=== PATIENT | male | born 1990 | race American Indian/Alaskan Native ===

== ENCOUNTER 2017-04-16 18:49 | Emergency (ER) | payer SELFPAY ==
[2017-04-16 19:03] VITALS: BMI 35.9
[2017-04-16 19:09] VITALS: TEMP 100.9
--- NOTE | 2017-04-16 19:44 | ED PDOC ---
Arrival/HPI - General Historian: Patient <Sacha Mims - Last Filed: 04/16/17 22:19> - General Historian: Patient <Pierre Alamo - Last Filed: 04/16/17 22:27> - General Chief Complaint: Medical Clearance Time Seen by Provider: 04/16/17 19:29 - History of Present Illness Narrative History of Present Illness (Text): 04/16/17 19:40 This is a 26yo M w/ a PMHx of bacterial endocarditis s/p valve repair w/ open heart surgery and antibiotic therapy with no other medical problems who is coming to the emergency room after a 1d history of just feeling off. States he felt like his heart was pounding out of his chest, and that he started to feel faint and like the room started to go a little bit dark. He also admit to concurrent nausea, no vomiting. This has never happened to him before. States he got endocarditis from a PNA that he had in the past; denies all IVDA or any drug use whatsoever. Denies EtOH or smoking. 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 PMD: Dr. Hoang Beck Cardio: Dr. 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, denies EtOH or smoking/ illicit drugs 04/16/17 20:53 (Sacha Mims) Past Medical History - Infectious Disease Hx of Infectious Diseases: None - Cardiac Other/Comment: heart murmur as a child - Psychiatric Hx Substance Use: No - Surgical History Other/Comment: pericarditis had surgery 2013 - Anesthesia Hx Anesthesia Reactions: No Hx Malignant Hyperthermia: No <Sacha Mims - Last Filed: 04/16/17 22:19> - Provider Review Nursing Documentation Reviewed: Yes <Pierre Alamo - Last Filed: 04/16/17 22:27> Family/Social History Smoking Status: Never Smoked Hx Alcohol Use: No Hx Substance Use: No <Sacha Mims - Last Filed: 04/16/17 22:19> - Physician Review Nursing Documentation Reviewed: Yes Family/Social History: Unknown Family HX <Pierre Alamo - Last Filed: 04/16/17 22:27> Allergies/Home Meds <PrasannaSacha - Last Filed: 04/16/17 22:19> <Yan Alamoevangelina - Last Filed: 04/16/17 22:27> Allergies/Adverse Reactions: Allergies No Known Allergies Allergy (Verified 04/16/17 19:36) Review of Systems - Review of Systems Constitutional: Fatigue Eyes: Vision Changes Respiratory: SOB Cardiovascular: Palpitations. absent: Chest Pain, Edema, Syncope Gastrointestinal: absent: Abdominal Pain, Stool Changes, Constipation Genitourinary Male: absent: Dysuria, Frequency, Hematuria Musculoskeletal: absent: Arthralgias, Back Pain Skin: absent: Rash, Pruritis Neurological: Headache. absent: Dizziness Endocrine: absent: Diaphoresis Hemo/Lymphatic: absent: Adenopathy Psychiatric: absent: Anxiety, Depression <Sacha Mims - Last Filed: 04/16/17 22:19> Physical Exam Temperature: Febrile Blood Pressure: Normal Pulse: Tachycardic Respiratory Rate: Normal Appearance: Positive for: Well-Appearing Pain Distress: None Mental Status: Positive for: Alert and Oriented X 3 - Systems Exam Head: Present: Atraumatic, Normocephalic Pupils: Present: PERRL Extroacular Muscles: Present: EOMI Conjunctiva: Present: Normal Mouth: Present: Moist Mucous Membranes Neck: Present: Normal Range of Motion Respiratory/Chest: Present: Clear to Auscultation, Good Air Exchange. No: Respiratory Distress, Accessory Muscle Use (scar from open heart surgery well healed) Cardiovascular: Present: Regular Rate and Rhythm, Murmurs, Normal S1, S2, Tachycardic Abdomen: No: Tenderness, Distention Upper Extremity: Present: Normal Inspection. No: Cyanosis, Edema Lower Extremity: Present: Normal Inspection. No: Edema, CALF TENDERNESS Neurological: Present: GCS=15, CN II-XII Intact Skin: Present: Warm <Sacha Mims - Last Filed: 04/16/17 22:19> Vital Signs Reviewed: Yes <Pierre Alamo - Last Filed: 04/16/17 22:27> Vital Signs Temp Pulse Resp BP Pulse Ox 04/16/17 18:50 100.9 F H 117 H 18 130/77 97 Medical Decision Making <Sacha Mims - Last Filed: 04/16/17 22:19> - Lab Interpretations I have reviewed the lab results: Yes - EKG Interpretation Interpreted by ED Physician: Yes Type: 12 lead EKG <Pierre Alamo - Last Filed: 04/16/17 22:27> ED Course and Treatment: 04/16/17 19:45 Will order CBC CMP Cardiac Iso, Chest X-Ray, Blood cultures SIRS 2/4 for right now; tachycardia, RR above 20 EKG Showed Sinus Tachy at 108 w/ RBBB and T wave abnormality Reassess and disposition 04/16/17 19:54 Rectal Temp 100.9; SIRS 3/4 04/16/17 22:19 The patient is wishing to sign out AMA he was advised of the risks of doing so up to and including , permanent disability etc he understands the risks and benefits of leaving he states he will come back to the hospital after because he needs to bring his family home right now discussed with Dr. alamo (Shannan'juniorSacha) 04/16/17 Patient Seen With Resident: In agreement with resident note which contains more details about the patient. Patient was seen and evaluated with resident. Came up with plan and treatment together. 04/16/17 21:58 Patient with fever but with history of endocarditis - will need tba to follow blood cultures and echo. Patient however refusing to stay in the hospital, signing out ama, understanding the risk of leaving ama, including recurrence of endocarditis. (Pierre Alamo) - Lab Interpretations Lab Results: 04/16/17 19:50 04/16/17 19:50 Lab Results 04/16/17 21:20: Urine Color Yellow, Urine Appearance Clear, Urine pH 8.5, Ur Specific [place] 1.015, Urine Protein Trace H, Urine Glucose (UA) Negative, Urine Ketones Negative, Urine Blood Negative, Urine Nitrate Negative, Urine Bilirubin Negative, Urine Urobilinogen 1.0 H, Ur Leukocyte Esterase Negative, Urine RBC 0 - 2, Urine WBC 0 - 2 04/16/17 21:20: Urine Opiates Screen Negative, Urine Methadone Screen Negative, Ur Barbiturates Screen Negative, Ur Phencyclidine Scrn Negative, Ur Amphetamines Screen Negative, U Benzodiazepines Scrn Negative, U Oth Cocaine Metabols Negative, U Cannabinoids Screen Negative 04/16/17 21:20: Influenza Typ A,B (EIA) Negative for flu a/b 04/16/17 20:45: D-Dimer, Quantitative 0.32 04/16/17 19:50: Sodium 137, Potassium 3.9, Chloride 100, Carbon Dioxide 27, Anion Gap 14, BUN 12, Creatinine 0.9, Est GFR ( Amer) > 60, Est GFR (Non- Af Amer) > 60, Random Glucose 108, Calcium 9.4, Phosphorus 2.8, Magnesium 1.8, Total Bilirubin 0.8, AST 45, ALT 42, Alkaline Phosphatase 55, Lactate Dehydrogenase 616, Total Creatine Kinase 133, Troponin I < 0.01, Total Protein 8.1, Albumin 4.5, Globulin 3.5, Albumin/Globulin Ratio 1.3 04/16/17 19:50: WBC 9.7, RBC 4.84, Hgb 13.7 L, Hct 40.8 L, MCV 84.3, MCH 28.3, MCHC 33.6, RDW 12.7, Plt Count 326, MPV 9.2, Gran % 78.8 H, Lymph % (Auto) 14.2 L, [place] % (Auto) 6.1 H, Eos % (Auto) 0.6 L, Baso % (Auto) 0.3, Gran # 7.64 H, Lymph # 1.4, [place] # 0.6, Eos # 0.1, Baso # 0.03 - RAD Interpretation Radiology Orders: 04/16/17 19:40 CHEST PORTABLE [RAD] Stat <Sacha Mims - Last Filed: 04/16/17 22:19> - PA / RADIO SURVEY WORKER / Resident Statement / has reviewed & agrees with the documentation as recorded. MD/ has examined the patient and agrees with the treatment plan. - Scribe Statement The provider has reviewed the documentation as recorded by the Scribe <Pierre Alamo - Last Filed: 04/16/17 22:27> - Scribe Statement 04/16/2017 Astrid Mauricio Provider Scribe Attestation: All medical record entries made by the Scribe were at my direction and personally dictated by me. I have reviewed the chart and agree that the record accurately reflects my personal performance of the history, physical exam, medical decision making, and the department course for this patient. I have also personally directed, reviewed, and agree with the discharge instructions and disposition. (Pierre Alamo) Disposition/Present on Arrival - Present on Arrival Any Indicators Present on Arrival: No History of DVT/PE: No History of Uncontrolled Diabetes: No Urinary Catheter: No History of Decub. Ulcer: No History Surgical Site Infection Following: None - Disposition Have Diagnosis and Disposition been Completed?: No <Sacha Mims - Last Filed: 04/16/17 22:19> - Present on Arrival Any Indicators Present on Arrival: No - Disposition Have Diagnosis and Disposition been Completed?: Yes Disposition Time: 22:00 Patient Plan: Other (AMA) <Pierre Alamo - Last Filed: 04/16/17 22:27> - Disposition Diagnosis: Fever Disposition: AGAINST MEDICAL ADVICE Patient Problems: Current Active Problems Problem Status Onset Fever Acute Condition: UNKNOWN Additional Instructions: You are leaving the hospital against medical advice. You may return to the emergency department at any time. If you choose not to do so, then recommend following up with your primary care doctor as soon as possible. Referrals: Kiran Bolton Jr., MD [Primary Care Provider] - Follow up with primary Forms: WORK NOTE
[2017-04-16 20:11] LABS: ALB/GLOB RATIO 1.3 (1.1-1.8); ALBUMIN 4.5 g/dL (3.0-4.8); ALT/SGPT 42 U/L (7-56); AST/SGOT 45 U/L (15-59); BASO # 0.03 K/mm3 (0.0-2.0); BASO % 0.3 % (0.0-3.0); BLOOD UREA NITROGEN 12 mg/dL (7-21); CALCIUM 9.4 mg/dL (8.4-10.5); EOS # 0.1 (0.0-0.7); EOS % 0.6 % (1.5-5.0); GFR AFRICAN-AMERICAN > 60; GFR NON-AFRICAN AMERICAN > 60; GRAN # 7.64 (1.4-6.5); GRAN % 78.8 % (50.0-68.0); HEMOGLOBIN 13.7 gm/dL (14.0-18.0); LYMPH # 1.4 (1.2-3.4); LYMPH % 14.2 % (22.0-35.0); MAGNESIUM 1.8 mg/dL (1.7-2.2); MEAN CELL VOLUME 84.3 fL (80.0-105.0); MEAN CORPUSCULAR HEMOGLOBIN 28.3 pg (25.0-35.0); MEAN CORPUSCULAR HGB CONC 33.6 g/dl (31.0-37.0); MEAN PLATELET VOLUME 9.2 fl (7.0-11.0); MONO # 0.6 (0.1-0.6); MONO % 6.1 % (1.0-6.0); PLATELET COUNT 326 10^3/uL (120.0-450.0); RBC 4.84 10^6/uL (3.5-6.1); RED CELL DISTRIBUTION WIDTH 12.7 % (11.5-14.5); WHITE BLOOD COUNT 9.7 10^3/ul (4.5-11.0)
[2017-04-16 20:23] LABS: TROPONIN I < 0.01 ng/mL
[2017-04-16 21:44] LABS: PH,URINE 8.5 (4.7-8.0); URINE BILIRUBIN NEGATIVE (NEGATIVE); URINE BLOOD NEGATIVE (NEGATIVE); URINE GLUCOSE (UA) NEGATIVE (NEGATIVE); URINE LEUKOCYTE ESTERASE NEGATIVE Leu/uL (NEGATIVE); URINE NITRATE NEGATIVE (NEGATIVE); URINE PROTEIN TRACE mg/dL (<30 mg/dL)
[2017-04-16 21:52] LABS: URINE APPEARANCE CLEAR (CLEAR); URINE COLOR YELLOW (YELLOW)
[2017-04-16 22:00] LABS: URINE RBC 0 - 2 /hpf (0-2); URINE WBC 0 - 2 /hpf (0-6)
[2017-04-16 22:18] LABS: BARBITURATES, UR NEGATIVE (NEGATIVE); BENZODIAZEPINES, UR NEGATIVE (NEGATIVE); OPIATES, UR NEGATIVE (NEGATIVE); PHENCYCLIDINE, UR NEGATIVE (NEGATIVE)
[2017-04-16 22:34] VITALS: BP 129/75; PULSE 100; RESP 16; O2SAT 98
--- NOTE | 2017-04-17 00:59 | CP.PCM.HP ---
History of Present Illness - History of Present Illness History of Present Illness: CC: Lethargy/fatigue, shortness of breath and subjective fever x 1 day HPI: 26 y/o male with a PMHx bacterial endocarditis s/p Mitral valve repair in 2012 presents to the ED with the complaint of shortness of breath and extreme fatigue with ambulation x 1 day. 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 While in the ED the patient also complained of feelling hot and was found to have a temp of 100.4. He reports some diaphoresis and chills as well over the past day. He denies any complaints of chest pain, palpitations, abdominal pain, nausea, vomiting, headache, diarrhea or syncope. He states following up with his Production Control Supervisor at [facility] (Dr. Tucker) and reports having tests done regularly. He last remembers getting a ARCENIO done earlier this year which as per him, was reported to be normal. PMHx: endocarditis secondary to pneumonia, s/p mitral valve repair 2013 Allergies: NKDA Fam Hx: Mother -born with a heart murmur Soc Hx: denies tobacco/etoh/illicit drug use Meds: patient does not take any medication Present on Admission - Present on Admission Any Indicators Present on Admission: No Review of Systems - Review of Systems Review of Systems: As per HPI otherwise negative for a 10 point ROS Past Patient History - Infectious Disease Hx of Infectious Diseases: None - Past Social History Smoking Status: Never Smoked - CARDIAC Other/Comment: heart murmur as a child - PSYCHIATRIC Hx Substance Use: No - SURGICAL HISTORY Other/Comment: pericarditis had surgery 2013 - ANESTHESIA Hx Anesthesia Reactions: No Hx Malignant Hyperthermia: No Meds Allergies/Adverse Reactions: Allergies Allergy/AdvReac Type Severity Reaction Status Date / Time No Known Allergies Allergy Verified 04/16/17 19:36 Physical Exam - Constitutional Appears: Well, Non-toxic, No Acute Distress - Head Exam Head Exam: ATRAUMATIC, NORMOCEPHALIC - Eye Exam Eye Exam: EOMI, Normal appearance - ENT Exam ENT Exam: Mucous Membranes Dry - Neck Exam Neck exam: Positive for: Normal Inspection - Respiratory Exam Respiratory Exam: Clear to Auscultation Bilateral, NORMAL BREATHING PATTERN. absent: Rales, Rhonchi, Wheezes - Cardiovascular Exam Cardiovascular Exam: REGULAR RHYTHM, +S1, +S2. absent: Systolic Murmur - GI/Abdominal Exam GI & Abdominal Exam: Soft. absent: Guarding, Rebound, Tenderness - Rectal Exam Rectal Exam: Deferred - Extremities Exam Extremities exam: Positive for: normal inspection. Negative for: calf tenderness - Neurological Exam Neurological exam: Alert, Oriented x3 - Psychiatric Exam Psychiatric exam: Normal Affect, Normal Mood - Skin Skin Exam: Dry, Intact, Normal Color, Warm Results - Vital Signs Recent Vital Signs: Last Vital Signs Temp 100.9 F H 04/16/17 18:50 Pulse 100 H 04/16/17 22:33 Resp 16 04/16/17 22:33 BP 129/75 04/16/17 22:33 Pulse Ox 98 04/16/17 22:33 - Labs Result Diagrams: 04/16/17 19:50 04/16/17 19:50 Labs: Laboratory Results - last 24 hr 04/16/17 04/16/17 04/16/17 19:50 19:50 20:45 WBC 9.7 RBC 4.84 Hgb 13.7 L Hct 40.8 L MCV 84.3 MCH 28.3 MCHC 33.6 RDW 12.7 Plt Count 326 MPV 9.2 Gran % 78.8 H Lymph % (Auto) 14.2 L [place] % (Auto) 6.1 H Eos % (Auto) 0.6 L Baso % (Auto) 0.3 Gran # 7.64 H Lymph # 1.4 [place] # 0.6 Eos # 0.1 Baso # 0.03 D-Dimer, Quantitative 0.32 Sodium 137 Potassium 3.9 Chloride 100 Carbon Dioxide 27 Anion Gap 14 BUN 12 Creatinine 0.9 Est GFR ( Amer) > 60 Est GFR (Non-Af Amer) > 60 Random Glucose 108 Calcium 9.4 Phosphorus 2.8 Magnesium 1.8 Total Bilirubin 0.8 AST 45 ALT 42 Alkaline Phosphatase 55 Lactate Dehydrogenase 616 Total Creatine Kinase 133 Troponin I < 0.01 Total Protein 8.1 Albumin 4.5 Globulin 3.5 Albumin/Globulin Ratio 1.3 Urine Color Urine Appearance Urine pH Ur Specific [place] Urine Protein Urine Glucose (UA) Urine Ketones Urine Blood Urine Nitrate Urine Bilirubin Urine Urobilinogen Ur Leukocyte Esterase Urine RBC Urine WBC Urine Opiates Screen Urine Methadone Screen Ur Barbiturates Screen Ur Phencyclidine Scrn Ur Amphetamines Screen U Benzodiazepines Scrn U Oth Cocaine Metabols U Cannabinoids Screen Influenza Typ A,B (EIA) 04/16/17 04/16/17 04/16/17 21:20 21:20 21:20 WBC RBC Hgb Hct MCV MCH MCHC RDW Plt Count MPV Gran % Lymph % (Auto) [place] % (Auto) Eos % (Auto) Baso % (Auto) Gran # Lymph # [place] # Eos # Baso # D-Dimer, Quantitative Sodium Potassium Chloride Carbon Dioxide Anion Gap BUN Creatinine Est GFR ( Amer) Est GFR (Non-Af Amer) Random Glucose Calcium Phosphorus Magnesium Total Bilirubin AST ALT Alkaline Phosphatase Lactate Dehydrogenase Total Creatine Kinase Troponin I Total Protein Albumin Globulin Albumin/Globulin Ratio Urine Color Yellow Urine Appearance Clear Urine pH 8.5 Ur Specific [place] 1.015 Urine Protein Trace H Urine Glucose (UA) Negative Urine Ketones Negative Urine Blood Negative Urine Nitrate Negative Urine Bilirubin Negative Urine Urobilinogen 1.0 H Ur Leukocyte Esterase Negative Urine RBC 0 - 2 Urine WBC 0 - 2 Urine Opiates Screen Negative Urine Methadone Screen Negative Ur Barbiturates Screen Negative Ur Phencyclidine Scrn Negative Ur Amphetamines Screen Negative U Benzodiazepines Scrn Negative U Oth Cocaine Metabols Negative U Cannabinoids Screen Negative Influenza Typ A,B (EIA) Negative for flu a/b - EKG Data EKG Interpreted by: Myself Rate: Tachycardia (RBBB pattern; T wave inverted in the precordial leads) Assessment & Plan - Assessment and Plan (Free Text) Assessment: 26 y/o male with a PMHx bacterial endocarditis treated with IV Abx and subsequent mitral valve repair in 2012 comes to the ED with the complaint of shortness of breath, lethargy/fatigue and fever x 1 day. He will be placed on observation for further evaluation and management of his acute illness. Plan: 1) Febrile illness - patient had a low grade temperature with a fairly normal lab profile. At this time, I will hold off on starting IV Abx and follow blood cultures. Will treat only with a prophylactic dose of amoxicillin 2gm po x 1 and monitor. In the event that the patient spikes a temperature overnight while he is here, I will start him on IV Abx. Will hydrate with IVF @ 100cc/hr; Will defer to the daytime team to obtain the ARCENIO from [facility] which was performed earlier this year as it is unobtainable at this time. 2) Fatigue/lethargy - will obtain a TSH and free T4; review ARCENIO, if unobtainable , consider repeating a 2decho while he is here in the hospital. 3) h/o endocarditis - drug screen negative, patient has been treated over 4 years ago; will cycle cardiac enzymes to rule out ischemia given RBBB with T wave abnormalities; ASA 81mg po x 1 for now 4)GI/DVT ppx - protonix po/SCD's
[2017-04-17] MEDS ORDERED: Sodium Chloride 0.9% 1,000 ML IV SCH (01:00)
--- NOTE | 2017-04-17 09:21 | RAD ---
HISTORY: sob COMPARISON: No prior. FINDINGS: LUNGS: No active pulmonary disease. PLEURA: No significant pleural effusion identified, no pneumothorax apparent. CARDIOVASCULAR: Mild cardiomegaly. Central pulmonary vasculature possibly minimally increased. Midline sternotomy changes. OSSEOUS STRUCTURES: No significant abnormalities. VISUALIZED UPPER ABDOMEN: Normal. OTHER FINDINGS: None. - IMPRESSION: Mild cardiomegaly -midline sternotomy changes. Possible minimally increased pulmonary vascular congestion. No pleural effusions. Correlate clinically - age noted
--- NOTE | 2017-04-17 12:39 | CARD ---
APPROVED REPORT EKG Measurement Heart [id number] <Conclusion> Sinus tachycardia Possible Left atrial enlargement Right bundle branch block T wave abnormality, consider lateral ischemia Abnormal ECG
== END 2017-04-16 22:35 | disposition left against medical advice (07) ==
LOC: ED 18:49
DX: R50.9 Fever, unspecified (principal); I33.0 Acute and subacute infective endocarditis; Z95.1 Presence of aortocoronary bypass graft; Z82.49 Family history of ischemic heart disease and other diseases of the circulatory system; Z83.3 Family history of diabetes mellitus
CPT/HCPCS: 71010; 80053; 81001; 82550; 83615; 83735; 84100; 84484; 85025; 85378; 87040; 87804; 93005; 99282; G0480

== ENCOUNTER 2017-04-17 00:10 | Inpatient (IN) | payer SELFPAY ==
[2017-04-17 00:10] VITALS: BMI 35.9
--- NOTE | 2017-04-17 01:16 | ED PDOC ---
Arrival/HPI - General Chief Complaint: Fever Time Seen by Provider: 04/17/17 00:15 Historian: Patient - History of Present Illness Narrative History of Present Illness (Text): 04/17/17 01:12 Jordi Orozco is a 26 year old male, with a history of bacterial endocarditis s/p valve repair w/ open heart surgery and antibiotic therapy, presents to the complaining of fever, and "not feeling well" for past day. He was evaluated by yesterday for these complaints and offered admission to the hospital for further evaluation due to his history of endocarditis. However, patient signed out against medical advice. He presents now with similar complains and is willing to sign into the hospital for further evaluation. Denies any other complaints. Time/Duration: 24 hours Symptom Onset: Gradual Severity Level: Mild Activities at Onset: Light Past Medical History - Provider Review Nursing Documentation Reviewed: Yes - Infectious Disease Hx of Infectious Diseases: None - Cardiac Other/Comment: heart murmur as a child - Psychiatric Hx Substance Use: No - Surgical History Other/Comment: pericarditis had surgery 2012 - Anesthesia Hx Anesthesia Reactions: No Hx Malignant Hyperthermia: No Family/Social History - Physician Review Nursing Documentation Reviewed: Yes Family/Social History: No Known Family HX Smoking Status: Never Smoked Hx Alcohol Use: No Hx Substance Use: No Allergies/Home Meds Allergies/Adverse Reactions: Allergies No Known Allergies Allergy (Verified 04/16/17 19:36) Home Medications: Home Meds Medication Instructions Recorded Confirmed No Known Home Med 04/17/17 04/17/17 Review of Systems - Physician Review All systems were reviewed & negative as marked: Yes - Review of Systems Constitutional: Fevers Eyes: Normal Respiratory: Normal. absent: SOB, Cough Cardiovascular: Normal. absent: Chest Pain Gastrointestinal: Normal. absent: Abdominal Pain, Diarrhea, Nausea, Vomiting Neurological: Normal. absent: Headache, Dizziness Psychiatric: Normal Physical Exam Vital Signs Reviewed: Yes Vital Signs Temp Pulse Resp BP Pulse Ox 04/17/17 03:15 103 F H 04/17/17 02:46 103.6 F H 115 H 16 124/70 99 04/17/17 00:10 98.0 F 119 H 16 131/78 97 Temperature: Afebrile Blood Pressure: Normal Pulse: Tachycardic Appearance: Positive for: Well-Appearing, Non-Toxic, Comfortable Pain Distress: None Mental Status: Positive for: Alert and Oriented X 3 - Systems Exam Head: Present: Atraumatic, Normocephalic Pupils: Present: PERRL Conjunctiva: Present: Normal Mouth: Present: Moist Mucous Membranes Neck: Present: Normal Range of Motion Respiratory/Chest: Present: Clear to Auscultation, Good Air Exchange. No: Respiratory Distress, Accessory Muscle Use Cardiovascular: Present: Regular Rate and Rhythm, Normal S1, S2. No: Murmurs Abdomen: Present: Normal Bowel Sounds. No: Tenderness, Distention, Peritoneal Signs Upper Extremity: Present: Normal Inspection. No: Cyanosis, Edema Lower Extremity: Present: Normal Inspection. No: Edema Neurological: Present: GCS=15, CN II-XII Intact, Speech Normal, Motor Func Grossly Intact, Normal Sensory Function Skin: Present: Warm, Dry, Normal Color. No: Rashes Psychiatric: Present: Alert, Oriented x 3, Normal Insight, Normal Concentration Medical Decision Making ED Course and Treatment: 04/17/17 01:17 Impression: A 26 year old male who presents to the emergency department complaining of "not feeling well" for 1 day. Progress Notes: 04/17/17 01:[address] Patel who is aware and agrees with the plan to observe patient at Med/Surg. Accepts patient under his service. - Medication Orders Current Medication Orders: Acetaminophen (Tylenol 325mg Tab) 650 mg PO Q4H PRN PRN Reason: Fever >100.5 F Last Admin: 04/17/17 16:27 Dose: 650 mg Re-Assess: MAR Pain/Vitals Document 04/17/17 17:27 EP [facility]: [facility]17[facility]17 18:14 [id number] Vitals Temperature (97.6 F-99.6 F) 99 F Aspirin (Ecotrin) 81 mg PO DAILY ABRIL Last Admin: 04/17/17 09:59 Dose: 81 mg Vancomycin HCl (Vancomycin 1gm) 1 gm in 250 mls @ 167 mls/hr IVPB DAILY ABRIL PRN Reason: Protocol Sodium Chloride (Sodium Chloride 0.9%) 1,000 mls @ 100 mls/hr IV .Q10H [facility] Last Admin: 04/17/17 16:26 Dose: 100 mls/hr Loperamide HCl (Imodium) 2 mg PO Q6H PRN PRN Reason: Diarrhea Ondansetron HCl (Zofran Inj) 4 mg IVP Q6H PRN PRN Reason: Nausea/Vomiting Discontinued Medications Acetaminophen (Tylenol 325mg Tab) 650 mg PO STAT STA Stop: 04/17/17 03:05 Last Admin: 04/17/17 03:15 Dose: 650 mg Amoxicillin (Amoxil 500 Mg Cap) 2,000 mg PO ONCE ONE PRN Reason: Protocol Stop: 04/17/17 06:30 Last Admin: 04/17/17 08:22 Dose: 2,000 mg Vancomycin HCl (Vancomycin 1gm) 1 gm in 250 mls @ 167 mls/hr IVPB STAT STA PRN Reason: Protocol Stop: 04/17/17 04:33 Last Admin: 04/17/17 04:22 Dose: 167 mls/hr Piperacillin Sod/Tazobactam Sod (Zosyn 3.375 In Ns 100ml) 100 mls @ 200 mls/hr IVPB Q6 ABRIL PRN Reason: Protocol Stop: 04/18/17 00:29 Last Admin: 04/18/17 00:45 Dose: 200 mls/hr - Scribe Statement The provider has reviewed the documentation as recorded by the Noelleibkevin Armas Provider Attestation: Provider Scribe Attestation: All medical record entries made by the Noelleibkevin were at my direction and personally dictated by me. I have reviewed the chart and agree that the record accurately reflects my personal performance of the history, physical exam, medical decision making, and the department course for this patient. I have also personally directed, reviewed, and agree with the discharge instructions and disposition. Disposition/Present on Arrival - Present on Arrival Any Indicators Present on Arrival: No History of DVT/PE: No History of Uncontrolled Diabetes: No Urinary Catheter: No History of Decub. Ulcer: No History Surgical Site Infection Following: None - Disposition Have Diagnosis and Disposition been Completed?: Yes Diagnosis: Fever Disposition: HOSPITALIZED Disposition Time: 01:15 Condition: GOOD
[2017-04-17] MEDS ORDERED: Vancomycin 1gm in NS 250ml 1 GM/250 ML BAG IVPB STA (03:04)
--- NOTE | 2017-04-17 06:28 | CP.PCM.HP ---
History of Present Illness - History of Present Illness History of Present Illness: CC: Lethargy/fatigue, shortness of breath and subjective fever x 1 day HPI: 26 y/o male with a PMHx bacterial endocarditis s/p Mitral valve repair in 2012 presents to the ED with the complaint of shortness of breath and extreme fatigue with ambulation x 1 day. 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 While in the ED the patient also complained of feelling hot and was found to have a temp of 100.4. He reports some diaphoresis and chills as well over the past day. He denies any complaints of chest pain, palpitations, abdominal pain, nausea, vomiting, headache, diarrhea or syncope. He states following up with his Budget Assistant at [facility] (Dr. Tucker) and reports having tests done regularly. He last remembers getting a ARCENIO done earlier this year which as per him, was reported to be normal. PMHx: endocarditis secondary to pneumonia, s/p mitral valve repair 2013 Allergies: NKDA Fam Hx: Mother -born with a heart murmur Soc Hx: denies tobacco/etoh/illicit drug use Meds: patient does not take any medication Present on Admission - Present on Admission Any Indicators Present on Admission: No Review of Systems - Review of Systems Review of Systems: As per HPI otherwise negative for a 10 point ROS Past Patient History - Infectious Disease Hx of Infectious Diseases: None - Past Social History Smoking Status: Never Smoked - CARDIAC Other/Comment: bacterial endocarditis - MUSCULOSKELETAL/RHEUMATOLOGICAL Hx Falls: No - PSYCHIATRIC Hx Substance Use: No - SURGICAL HISTORY Hx Open Heart Surgery: Yes (for valve repair) - ANESTHESIA Hx Anesthesia Reactions: No Hx Malignant Hyperthermia: No Meds Allergies/Adverse Reactions: Allergies Allergy/AdvReac Type Severity Reaction Status Date / Time No Known Allergies Allergy Verified 04/16/17 19:36 Physical Exam - Constitutional Appears: Well, Non-toxic, No Acute Distress - Head Exam Head Exam: ATRAUMATIC, NORMOCEPHALIC - Eye Exam Eye Exam: EOMI, Normal appearance - ENT Exam ENT Exam: Mucous Membranes Moist - Neck Exam Neck exam: Positive for: Normal Inspection - Respiratory Exam Respiratory Exam: Clear to Auscultation Bilateral, NORMAL BREATHING PATTERN. absent: Rales, Rhonchi, Wheezes - Cardiovascular Exam Cardiovascular Exam: Tachycardia, +S1, +S2 - GI/Abdominal Exam GI & Abdominal Exam: Soft. absent: Guarding, Rebound, Tenderness - Rectal Exam Rectal Exam: Deferred - Extremities Exam Extremities exam: Positive for: normal inspection. Negative for: calf tenderness - Neurological Exam Neurological exam: Alert, Oriented x3 - Psychiatric Exam Psychiatric exam: Normal Affect, Normal Mood - Skin Skin Exam: Dry, Intact, Normal Color, Warm Results - Vital Signs Recent Vital Signs: Last Vital Signs Temp 101.6 F H 04/17/17 03:49 Pulse 128 H 04/17/17 03:49 Resp 20 04/17/17 03:49 BP 143/74 04/17/17 03:49 Pulse Ox 99 04/17/17 02:46 - EKG Data EKG Interpreted by: Myself EKG shows normal: Sinus rhythm Rate: Tachycardia Assessment & Plan - Assessment and Plan (Free Text) Assessment: 26 y/o male with a PMHx bacterial endocarditis treated with IV Abx and subsequent mitral valve repair in 2012 comes to the ED with the complaint of shortness of breath, lethargy/fatigue and fever x 1 day. He will be placed on observation for further evaluation and management of his acute illness. Plan: 1) Febrile illness - patient had a low grade temperature with a fairly normal lab profile. At this time, I will hold off on starting IV Abx and follow blood cultures. Will treat only with a prophylactic dose of amoxicillin 2gm po x 1 and monitor. He was treated with a dose of Vancomycin IV in the ED. In the event that the patient spikes a temperature overnight while he is here, I will start him on IV Abx. Will hydrate with IVF @ 100cc/hr; Will defer to the daytime team to obtain the ARCENIO from [facility] which was performed earlier this year as it is unobtainable at this time. 2) Fatigue/lethargy - will obtain a TSH and free T4; review ARCENIO, if unobtainable , consider repeating a 2decho while he is here in the hospital. 3) h/o endocarditis - drug screen negative, patient has been treated over 4 years ago; will cycle cardiac enzymes to rule out ischemia given RBBB with T wave abnormalities; ASA 81mg po x 1 for now 4)GI/DVT ppx - po diet/SCD's
[2017-04-17 08:18] LABS: TROPONIN I < 0.01 ng/mL
[2017-04-17 08:20] LABS: FREE T4 0.93 ng/dL (0.78-2.19)
[2017-04-17 08:24] LABS: ALB/GLOB RATIO 1.3 (1.1-1.8); ALBUMIN 4.5 g/dL (3.0-4.8); ALT/SGPT 40 U/L (7-56); AST/SGOT 24 U/L (15-59); BLOOD UREA NITROGEN 9 mg/dL (7-21); CALCIUM 9.3 mg/dL (8.4-10.5); GFR AFRICAN-AMERICAN > 60; GFR NON-AFRICAN AMERICAN > 60
[2017-04-17 08:35] LABS: B-TYPE NATRIURETIC PEPTIDE 90.6 pg/mL (0-450)
[2017-04-17 11:08] LABS: BASO # 0.03 K/mm3 (0.0-2.0); BASO % 0.3 % (0.0-3.0); EOS % 0.1 % (1.5-5.0); GRAN # 10.08 (1.4-6.5); GRAN % 85.3 % (50.0-68.0); HEMOGLOBIN 13.4 gm/dL (14.0-18.0); LYMPH # 0.8 (1.2-3.4); LYMPH % 7.1 % (22.0-35.0); MEAN CELL VOLUME 85.1 fL (80.0-105.0); MEAN CORPUSCULAR HEMOGLOBIN 28.2 pg (25.0-35.0); MEAN CORPUSCULAR HGB CONC 33.2 g/dl (31.0-37.0); MEAN PLATELET VOLUME 9.1 fl (7.0-11.0); MONO # 0.9 (0.1-0.6); MONO % 7.2 % (1.0-6.0); PLATELET COUNT 298 10^3/uL (120.0-450.0); RBC 4.75 10^6/uL (3.5-6.1); RED CELL DISTRIBUTION WIDTH 12.9 % (11.5-14.5); WHITE BLOOD COUNT 11.8 10^3/ul (4.5-11.0)
[2017-04-17] MEDS ORDERED: Sodium Chloride 0.9% 1,000 ML IV SCH (14:45)
[2017-04-17] MEDS: Sodium Chloride 0.9% 1,000 ML IV SCH (16:26)
[2017-04-17] MEDS: Piperacillin/Tazobact 3.375 gm 100 ML IVPB SCH (17:05)
[2017-04-18] MEDS: Piperacillin/Tazobact 3.375 gm 100 ML IVPB SCH (00:45)
--- NOTE | 2017-04-18 01:17 | CON ---
DATE: 04/17/2017 CARDIOLOGY CONSULTATION HISTORY OF PRESENT ILLNESS: The patient is 26-year-old male who presents with fever and general malaise. PAST MEDICAL HISTORY: Notable for history of valvular repair of endocarditis performed several years ago at [facility]. He denies any other issues, negative shortness of breath, negative angina. He denies recent history of smoking and denies history of IV drug abuse. REVIEW OF SYSTEMS: Were reviewed in detail with no new information. PHYSICAL EXAMINATION: VITAL SIGNS: Blood pressure is123/71, heart rate is 100 to 110, sinus tachycardia. NECK: Negative JVD. LUNGS: Without rales. HEART: Revels a 2/6 systolic ejection murmur. EXTREMITIES: Without edema. LABORATORY DATA: Hemoglobin is 13.4. Chemistries: Troponins are negative x2. IMPRESSION: 1. Fever. 2. Sepsis. 3. Rule out endocarditis 4. History of mitral valve repair. Given these findings, awaiting results of blood cultures. Echocardiogram to evaluate vegetation. Florin Luna MD
[2017-04-18 07:50] LABS: ALB/GLOB RATIO 1.1 (1.1-1.8); ALBUMIN 3.9 g/dL (3.0-4.8); ALT/SGPT 31 U/L (7-56); AST/SGOT 21 U/L (15-59); BLOOD UREA NITROGEN 8 mg/dL (7-21); CALCIUM 8.5 mg/dL (8.4-10.5); GFR AFRICAN-AMERICAN > 60; GFR NON-AFRICAN AMERICAN > 60
[2017-04-18 08:08] LABS: BASO # 0.03 K/mm3 (0.0-2.0); BASO % 0.3 % (0.0-3.0); EOS % 0.2 % (1.5-5.0); GRAN # 7.84 (1.4-6.5); GRAN % 71.3 % (50.0-68.0); HEMOGLOBIN 12.9 gm/dL (14.0-18.0); LYMPH # 1.8 (1.2-3.4); LYMPH % 15.9 % (22.0-35.0); MEAN CORPUSCULAR HGB CONC 32.9 g/dl (31.0-37.0); MEAN PLATELET VOLUME 9.4 fl (7.0-11.0); MONO # 1.4 (0.1-0.6); MONO % 12.3 % (1.0-6.0); PLATELET COUNT 291 10^3/uL (120.0-450.0); RBC 4.61 10^6/uL (3.5-6.1); RED CELL DISTRIBUTION WIDTH 13.2 % (11.5-14.5)
[2017-04-18] MEDS ORDERED: Vancomycin 1gm in NS 250ml 1 GM/250 ML BAG IVPB SCH (10:00)
[2017-04-18] MEDS ORDERED: Bismuth Subsalicylate 262 mg/15 ml Sus (240 ml) PO ONE (12:49)
[2017-04-18] MEDS ORDERED: Barium Sulfate Susp 2.1% w/v, 2.0% w/w 450 mL Bottle PO ONE (12:57)
--- NOTE | 2017-04-18 13:04 | CARD ---
APPROVED REPORT EKG Measurement Heart [id number] ID [id number] <Conclusion> Sinus tachycardia Right bundle branch block T wave abnormality, nonspecific Abnormal ECG
--- NOTE | 2017-04-18 15:21 | CARD ---
APPROVED REPORT EXAM: Two-dimensional and M-mode echocardiogram with Doppler and color Doppler. INDICATION HX OF ENDOCARDITIS 2D DIMENSIONS Left Atrium (2D)3.9 (1.6-4.0cm)IVSd1.2 (0.7-1.1cm) LVDd4.7 (3.9-5.9cm)PWd1.6 (0.7-1.1cm) LVDs3.1 (2.5-4.0cm)FS (%) 33.8 % LVEF (%)62.6 (>50%) M-Mode DIMENSIONS Aortic Root3.40 (2.2-3.7cm)Aortic Cusp Exc.2.20 (1.5-2.0cm) Aortic Valve AoV Peak Icohijbs879.0cm/Brandi Peak GR.6mmHg Mitral Valve MV E Yxzjppei99.1cm/sMV A Ciquxtgx91.9cm/sE/A ratio1.0 TDI Lateral E' Peak V13.10cm/sMedial E' Peak V6.24cm/sE/Lateral E'7.5 E/Medial E'15.7 Pulmonary Valve PV Peak Sovyktsg060.0cm/sPV Peak Grad.6mmHg Tricuspid Valve TR Peak Kmvvczki698sg/sRAP [id number] Peak Gr.47mmHg [id number] LEFT VENTRICLE The left ventricle is normal size. There is borderline concentric left ventricular hypertrophy. The left ventricular ejection fraction is within the normal range. There is a flattened septum Transmitral Doppler flow pattern is Grade I-abnormal relaxation pattern. RIGHT VENTRICLE The right ventricle is mildly dilated. There is normal right ventricular wall thickness. RV Systolic function is mildly to moderately reduced. ATRIA The left atrium size is normal. The right atrium is moderately dilated. AORTIC VALVE The aortic valve is normal in structure. MITRAL VALVE The mitral valve is mildly thickened. TRICUSPID VALVE There is moderate tricuspid regurgitation. There is moderate pulmonary hypertension. PULMONIC VALVE There is moderate pulmonic valvular regurgitation. <Conclusion> The left ventricle is normal size. There is borderline concentric left ventricular hypertrophy. The left ventricular ejection fraction is within the normal range. There is a flattened septum Transmitral Doppler flow pattern is Grade I-abnormal relaxation pattern. The right ventricle is mildly dilated. RV Systolic function is mildly to moderately reduced. There is moderate tricuspid regurgitation. There is moderate pulmonary hypertension. There is moderate pulmonic valvular regurgitation.
--- NOTE | 2017-04-18 17:43 | CT ---
PROCEDURE: CT Abdomen and Pelvis without intravenous contrast HISTORY: fever, tachycardia and new onset diarrhea COMPARISON: None. TECHNIQUE: Without contrast.. Contrast Dose: Radiation dose: Total exam DLP = 1150 mGy-cm. This CT exam was performed using one or more of the following dose reduction techniques: Automated exposure control, adjustment of the mA and/or kV according to patient size, and/or use of iterative reconstruction technique. FINDINGS: LOWER THORAX: Unremarkable. LIVER: Unremarkable. No gross lesion or ductal dilatation. GALLBLADDER AND BILE DUCTS: Unremarkable. PANCREAS: Unremarkable. No gross lesion or ductal dilatation. SPLEEN: Unremarkable. ADRENALS: Unremarkable. No mass. KIDNEYS AND URETERS: Unremarkable. No hydronephrosis. No solid mass. VASCULATURE: Unremarkable. No aortic aneurysm. BOWEL: There is mural thickening throughout the colon especially on the right side of the colon. Findings are consistent with colitis. APPENDIX: Unremarkable. Normal appendix. PERITONEUM: Unremarkable. No free fluid. No free air. LYMPH NODES: Unremarkable. No enlarged lymph nodes. BLADDER: Unremarkable. REPRODUCTIVE: Unremarkable. BONES: No acute fracture. OTHER FINDINGS: None. IMPRESSION: Mural thickening in the ascending and transverse colon consistent with colitis
[2017-04-18] MEDS: Sodium Chloride 0.9% 1,000 ML IV SCH ×2 (18:16)
--- NOTE | 2017-04-18 19:53 | CP.PCM.PN ---
Subjective - Date & Time of Evaluation Date of Evaluation: 04/18/17 Time of Evaluation: 09:30 - Subjective Subjective: Medicine Progress Note: Pt was seen and assessed at bedside. Pt has no new complaints but does report abdominal pain after he eats and an episode of diarrhea, consistent with what he was experiencing prior to his admission. He states that it isn't bloody diarrhea and that his abdominal pain does not radiate and is not associated with certain foods. Pt denies headache, changes in vision, fevers, shortness of breath, chest pain, nausea or vomiting. Objective - Vital Signs/Intake and Output Vital Signs (last 24 hours): Temp Pulse Resp BP Pulse Ox 99.8 F H 105 H 20 114/52 L 96 04/18/17 07:30 04/18/17 07:30 04/18/17 07:30 04/18/17 07:30 04/18/17 07:30 - Medications Medications: Current Medications Acetaminophen (Tylenol 325mg Tab) 650 mg PO Q4H PRN PRN Reason: Fever >100.5 F Last Admin: 04/18/17 10:37 Dose: 650 mg Aspirin (Ecotrin) 81 mg PO DAILY [facility] Last Admin: 04/18/17 10:37 Dose: 81 mg Vancomycin HCl (Vancomycin 1gm) 1 gm in 250 mls @ 167 mls/hr IVPB DAILY [facility] PRN Reason: Protocol Last Admin: 04/18/17 10:43 Dose: 167 mls/hr Sodium Chloride (Sodium Chloride 0.9%) 1,000 mls @ 100 mls/hr IV .Q10H [facility] Last Admin: 04/18/17 18:16 Dose: 100 mls/hr Piperacillin Sod/Tazobactam Sod (Zosyn 3.375 In Ns 100ml) 100 mls @ 200 mls/hr IVPB Q6 [facility] PRN Reason: Protocol Stop: 04/28/17 00:01 Ondansetron HCl (Zofran Inj) 4 mg IVP Q6H PRN PRN Reason: Nausea/Vomiting - Constitutional Appears: No Acute Distress - Head Exam Head Exam: NORMAL INSPECTION - Eye Exam Eye Exam: EOMI, Normal appearance - ENT Exam ENT Exam: Mucous Membranes Moist, Normal Exam - Neck Exam Neck Exam: Full ROM - Respiratory Exam Respiratory Exam: Clear to Ausculation Bilateral, NORMAL BREATHING PATTERN. absent: Rales, Rhonchi, Wheezes, Respiratory Distress - Cardiovascular Exam Cardiovascular Exam: Tachycardia, REGULAR RHYTHM, +S1, +S2, Murmur - GI/Abdominal Exam GI & Abdominal Exam: Normal Bowel Sounds. absent: Distended, Firm, Guarding, Tenderness - Extremities Exam Extremities Exam: Normal Inspection. absent: Calf Tenderness, Pedal Edema - Neurological Exam Neurological Exam: Alert, Awake, Oriented x3 - Psychiatric Exam Psychiatric exam: Normal Affect, Normal Mood - Skin Skin Exam: Dry, Intact, Normal Color, Warm Assessment and Plan - Assessment and Plan (Free Text) Assessment: Mr. Orozco is a 26 year old male with a past medical history significant for bacterial endocarditis in 2012 with MV repair presented with fever, shortness of breath and fatigue with ambulation with a duration of one day. Plan: 1. Colitis -CT showed mural thickening in ascending and transverse colon consistent with colitis -started cipro 400mg IV Q12 and flagyl 500mg IV Q8 (previously on vanc/zosyn) -patient started on PRN pepto-bismol for nausea and diarrhea -afebrile for 24 hours (102.7 on 04/17 at 1624), tachycardia into 105-188 range , WBC wnl -ID consulted, all recommendations appreciated -first c. diff stool sample negative; blood cultures negative; pending stool culture, ova/parasite and fecal leukocytes -will continue to monitor for improvement -Normal Saline at 150mls/hr 2. History of Endocarditis -drug screen negative -ECG showing RBBB with T wave abnormalities; troponins negative x3 -ECHO showed borderline concentric LVH, normal EF, flattened septum, grade-I abnormal relaxation pattern, mild RV dilation, RV systolic function mild-mod reduced, TR, [place] and pulmonary hypertension -cardiology consulted, all recommendations appreciated 3. GI/DVT Prophylaxis -regular diet/scd's Patient seen and case discussed in detail with attending, Dr. Lowery.
[2017-04-18] MEDS ORDERED: Ciprofloxacin 400mg/200ml D5W 400 MG/200 ML BAG IVPB SCH (22:00)
[2017-04-18] MEDS: metroNIDAZOLE IV 500 mg/100 ml 500 MG/100 ML BAG IVPB SCH (22:32)
--- NOTE | 2017-04-19 06:22 | CON ---
DATE: 04/18/2017 The patient seen earlier today in room 568, bed 1. CHIEF COMPLAINT: Fever of several days duration. HISTORY OF PRESENT ILLNESS: This is a 26-year-old obese male with a BMI of 34; history of endocarditis, 4 years ago and pericarditis and had surgery and mitral valve repair, he states in [facility]. He has no known allergies. He denies any intravenous drug abuse. He states he does not know why he got endocarditis. He was told he had an endocarditis, was given prolonged antibiotics and mitral valve repair. Now, he is admitted with fever and Infectious Disease consultation requested. The patient's temperature was up to 103 and he has no chest pain. No shortness of breath. He is complaining of epigastric pain. No nausea or vomiting. No diarrhea or constipation. PAST MEDICAL HISTORY: Significant for endocarditis 4 years ago and pericarditis. PAST SURGICAL HISTORY: Mitral valve repair. ALLERGIES: NO KNOWN ALLERGIES. He is not on any anticoagulation he states at this point and his medications at home, he takes no medications. PHYSICAL EXAMINATION: VITAL SIGNS: He has temperature of 103.6, heart rate of 105, blood pressure of 114/50 and respiratory rate of 20. HEENT: Unremarkable. NECK: Supple. LUNGS: Decreased breath sounds. HEART: Normal S1 and S2. No murmur is appreciated. ABDOMEN: Soft and nontender. No organomegaly. No rebound. No guarding. No masses. LABORATORY DATA: Reveals white count of 18,800, hemoglobin of 13, platelets of 298 with 85% granulocytosis. BUN of 8, creatinine of 1.0, C-reactive protein is greater than 15. Prolactin level is 0.06. Microbiology reveals the blood cultures of no growth at 24 hours and stool for C. diff and antigen are negative. LFTs are normal. ASSESSMENT AND PLAN: A 26-year-old male with obesity with BMI of 34 and history of endocarditis 4 years ago, mitral valve repair, history of pericarditis, now presenting with a temperature of 103 and abdominal pain and tachycardia and currently, systemic inflammatory response syndrome must rule out recurrent endocarditis. Although, the initial blood cultures are negative and we will also rule out GI pathology. We will treat the patient with vancomycin and Zosyn. Pending final coreas culture results and we will also order a CAT scan of the abdomen and pelvis. The etiology of the abdominal pain is unclear. Review of orders reveal the patient to have urine culture orders that are pending and also ordered an HIV on this patient because of his age of 26. He denies any intravenous drug abuse and has and 2 children. He works in fast food restaurant. The patient actually had a CAT of the abdomen and pelvis, which shows mural thickening in the ascending and transverse colon consistent with colitis. We will follow closely with you. Sacha Devries MD
[2017-04-19 07:21] LABS: BASO # 0.04 K/mm3 (0.0-2.0); BASO % 0.6 % (0.0-3.0); EOS # 0.2 (0.0-0.7); EOS % 3.4 % (1.5-5.0); GRAN # 3.95 (1.4-6.5); GRAN % 56.7 % (50.0-68.0); HEMOGLOBIN 12.6 gm/dL (14.0-18.0); LYMPH # 1.6 (1.2-3.4); LYMPH % 22.2 % (22.0-35.0); MEAN CORPUSCULAR HEMOGLOBIN 27.6 pg (25.0-35.0); MEAN CORPUSCULAR HGB CONC 32.8 g/dl (31.0-37.0); MEAN PLATELET VOLUME 8.9 fl (7.0-11.0); MONO # 1.2 (0.1-0.6); MONO % 17.1 % (1.0-6.0); PLATELET COUNT 288 10^3/uL (120.0-450.0); RBC 4.57 10^6/uL (3.5-6.1); RED CELL DISTRIBUTION WIDTH 13.1 % (11.5-14.5)
[2017-04-19 07:34] LABS: ALB/GLOB RATIO 1.1 (1.1-1.8); ALBUMIN 3.9 g/dL (3.0-4.8); ALT/SGPT 31 U/L (7-56); AST/SGOT 37 U/L (15-59); BLOOD UREA NITROGEN 6 mg/dL (7-21); CALCIUM 8.4 mg/dL (8.4-10.5); GFR AFRICAN-AMERICAN > 60; GFR NON-AFRICAN AMERICAN > 60
[2017-04-19 07:42] VITALS: BP 117/59; PULSE 70; RESP 18; TEMP 97.8; O2SAT 100
[2017-04-19] MEDS: metroNIDAZOLE IV 500 mg/100 ml 500 MG/100 ML BAG IVPB SCH (07:50)
--- NOTE | 2017-04-19 09:05 | CP.PCM.PN ---
Subjective - Date & Time of Evaluation Date of Evaluation: 04/19/17 Time of Evaluation: 07:15 - Subjective Subjective: Medicine Progress Note: Pt was seen and assessed at bedside. Pt has no new complaints. Pt states that he is "feeling better" than he was yesterday. Previous abdominal pain has lessened in intensity and he notes that his previous loose stools have also gotten "better". Pt denies fever, headache, chills, difficulty swallowing, chest pain, shortness of breath, nausea, or vomiting. Objective - Vital Signs/Intake and Output Vital Signs (last 24 hours): Temp Pulse Resp BP Pulse Ox 97.8 F 70 18 117/59 L 100 04/19/17 07:41 04/19/17 07:41 04/19/17 07:41 04/19/17 07:41 04/19/17 07:41 Intake and Output: 04/19/17 04/19/17 06:59 18:59 Intake Total 1680 Balance 1680 - Medications Medications: Current Medications Acetaminophen (Tylenol 325mg Tab) 650 mg PO Q4H PRN PRN Reason: Fever >100.5 F Last Admin: 04/18/17 23:02 Dose: 650 mg Aspirin (Ecotrin) 81 mg PO DAILY [facility] Last Admin: 04/18/17 10:37 Dose: 81 mg Sodium Chloride (Sodium Chloride 0.9%) 1,000 mls @ 100 mls/hr IV .Q10H [facility] Last Admin: 04/18/17 18:16 Dose: 100 mls/hr Metronidazole (Flagyl) 500 mg in 100 mls @ 100 mls/hr IVPB Q8 [facility] PRN Reason: Protocol Last Admin: 04/19/17 07:50 Dose: 100 mls/hr Ondansetron HCl (Zofran Inj) 4 mg IVP Q6H PRN PRN Reason: Nausea/Vomiting - Labs Labs: 04/19/17 06:35 04/19/17 06:35 - Constitutional Appears: No Acute Distress - Head Exam Head Exam: NORMAL INSPECTION - Eye Exam Eye Exam: EOMI, Normal appearance - ENT Exam ENT Exam: Mucous Membranes Moist, Normal Exam - Neck Exam Neck Exam: Full ROM - Respiratory Exam Respiratory Exam: Clear to Ausculation Bilateral, NORMAL BREATHING PATTERN. absent: Rales, Rhonchi, Wheezes, Respiratory Distress - Cardiovascular Exam Cardiovascular Exam: REGULAR RHYTHM, RRR, +S1, +S2. absent: Murmur - GI/Abdominal Exam GI & Abdominal Exam: Soft, Tenderness, Normal Bowel Sounds. absent: Distended, Firm, Guarding Additional comments: mild tenderness to deep palpation in LLQ and RLQ - Extremities Exam Extremities Exam: Normal Inspection. absent: Calf Tenderness, Pedal Edema - Neurological Exam Neurological Exam: Alert, Awake, Oriented x3 - Psychiatric Exam Psychiatric exam: Normal Affect, Normal Mood - Skin Skin Exam: Dry, Intact, Normal Color, Warm Assessment and Plan - Assessment and Plan (Free Text) Assessment: Mr. Orozco is a 26 year old male with a past medical history significant for bacterial endocarditis in 2012 with MV repair presented with fever, shortness of breath and fatigue with ambulation with a duration of one day. Plan: 1. Colitis -CT showed mural thickening in ascending and transverse colon consistent with colitis -cont cipro 400mg IV Q12 and flagyl 500mg IV Q8 (previously on vanc/zosyn) -patient started on PRN pepto-bismol for nausea and diarrhea -afebrile for 48 hours (102.7 on 04/17 at 1624), tachycardia into 105-188 range , WBC wnl -ID consulted, all recommendations appreciated -first c. diff stool sample negative; blood cultures negative; pending stool culture, ova/parasite and fecal leukocytes -will continue to monitor for improvement -Normal Saline at 150mls/hr 2. History of Endocarditis -drug screen negative -ECG showing RBBB with T wave abnormalities; troponins negative x3 -ECHO showed borderline concentric LVH, normal EF, flattened septum, grade-I abnormal relaxation pattern, mild RV dilation, RV systolic function mild-mod reduced, TR, [place] and pulmonary hypertension -cardiology consulted, all recommendations appreciated 3. GI/DVT Prophylaxis -regular diet/scd's Patient seen and case discussed in detail with attending, Dr. Lowery.
--- NOTE | 2017-04-19 10:19 | PN ---
CARDIOLOGY FOLLOWUP DATE: 04/19/2017 SUBJECTIVE: The patient is sitting in bed, eating without complaints. No fever. No abdominal pain. PHYSICAL EXAMINATION: VITAL SIGNS: Blood pressure is 117/60, heart rate is in the 70s, and patient is afebrile. NECK: Negative JVD. LUNGS: Without rales. HEART: Regular S1 and S2. EXTREMITIES: Without edema. LABORATORY DATA: White count is 7.0. Chemistries unremarkable. The echocardiogram report reveals good LV function with no reporting of vegetations. There was moderate pulmonary hypertension. Microbiology, there is no growth in terms of blood cultures. IMPRESSION: 1. Transient fever. 2. History of endocarditis. 3. History of valvular repair, presumed mitral in the past secondary to endocarditis. PLAN: Given these findings, patient is doing well. We will sign off the case today. Disposition is as per ID. Florin Luna MD
[2017-04-19] MEDS ORDERED: Piperacillin/Tazobact 3.375 gm 100 ML IVPB SCH ×2 (12:00)
--- NOTE | 2017-04-19 15:17 | CP.PCM.PN ---
Subjective - Date & Time of Evaluation Date of Evaluation: 04/19/17 Time of Evaluation: 10:35 - Subjective Subjective: Comfortable in bed, not in distress, no abdominal pain, no nausea or vomiting, feeling better. Objective - Vital Signs/Intake and Output Vital Signs (last 24 hours): Temp Pulse Resp BP Pulse Ox 97.8 F 70 18 117/59 L 100 04/19/17 07:41 04/19/17 07:41 04/19/17 07:41 04/19/17 07:41 04/19/17 07:41 Intake and Output: 04/19/17 04/19/17 06:59 18:59 Intake Total 1680 Balance 1680 - Labs Labs: 04/19/17 06:35 04/19/17 06:35 - Constitutional Appears: Non-toxic, No Acute Distress - Head Exam Head Exam: NORMAL INSPECTION - ENT Exam ENT Exam: Mucous Membranes Moist - Neck Exam Neck Exam: absent: Meningismus - Respiratory Exam Respiratory Exam: Decreased Breath Sounds - Cardiovascular Exam Cardiovascular Exam: +S1, +S2 - GI/Abdominal Exam GI & Abdominal Exam: Soft. absent: Tenderness Assessment and Plan - Assessment and Plan (Free Text) Plan: Assessment Acute colitis, clinicall improving, no evidence of c. diff. colitis history of endocarditis and pericarditis 4 years ago S/P mitral valve replacement obesity with BMI 35 Plan Currently on Zosyn day 2; blood cx have been negative; when ready for discharge , the patient can be switched to PO Augmentin to complete 7 days of therapy, with outpatient follow up with PMD
[2017-04-19] MEDS ORDERED: Amoxicillin-Clav 875-125 mg Tab PO SCH (22:00)
--- NOTE | 2017-04-21 21:04 | CP.PCM.DIS ---
Provider - Provider Date of Admission: 04/18/17 15:18 Attending physician: Robby Ervin MD Primary care physician: None Consults: ID- Dr. Mcgregor Cardiology- Dr. Luna Time Spent in preparation of Discharge (in minutes): 51 Hospital Course - Lab Results Lab Results: Most Recent Lab Values WBC 7.0 10^3/ul (4.5-11.0) D 04/19/17 06:35 RBC 4.57 10^6/uL (3.5-6.1) 04/19/17 06:35 Hgb 12.6 gm/dL (14.0-18.0) L 04/19/17 06:35 Hct 38.4 % (42.0-52.0) L 04/19/17 06:35 MCV 84.0 fL (80.0-105.0) 04/19/17 06:35 MCH 27.6 pg (25.0-35.0) 04/19/17 06:35 MCHC 32.8 g/dl (31.0-37.0) 04/19/17 06:35 RDW 13.1 % (11.5-14.5) 04/19/17 06:35 Plt Count 288 10^3/uL (120.0-450.0) 04/19/17 06:35 MPV 8.9 fl (7.0-11.0) 04/19/17 06:35 Gran % 56.7 % (50.0-68.0) 04/19/17 06:35 Lymph % (Auto) 22.2 % (22.0-35.0) 04/19/17 06:35 Reynolds % (Auto) 17.1 % (1.0-6.0) H 04/19/17 06:35 Eos % (Auto) 3.4 % (1.5-5.0) 04/19/17 06:35 Baso % (Auto) 0.6 % (0.0-3.0) 04/19/17 06:35 Gran # 3.95 (1.4-6.5) 04/19/17 06:35 Lymph # 1.6 (1.2-3.4) 04/19/17 06:35 Reynolds # 1.2 (0.1-0.6) H 04/19/17 06:35 Eos # 0.2 (0.0-0.7) 04/19/17 06:35 Baso # 0.04 K/mm3 (0.0-2.0) 04/19/17 06:35 ESR 3 mm/hr (0.0-15.0) 04/17/17 10:50 Sodium 140 mmol/L (132-148) 04/19/17 06:35 Potassium 3.9 mmol/L (3.6-5.0) 04/19/17 06:35 Chloride 104 mmol/L (98-107) 04/19/17 06:35 Carbon Dioxide 27 mmol/L (21-33) 04/19/17 06:35 Anion Gap 13 (10-20) 04/19/17 06:35 BUN 6 mg/dL (7-21) L 04/19/17 06:35 Creatinine 0.8 mg/dL (0.5-1.4) 04/19/17 06:35 Est GFR ( Amer) > 60 04/19/17 06:35 Est GFR (Non-Af Amer) > 60 04/19/17 06:35 Random Glucose 91 mg/dL (70-110) 04/19/17 06:35 Lactic Acid 1.0 mmol/L (0.7-2.1) 04/17/17 08:30 Calcium 8.4 mg/dL (8.4-10.5) 04/19/17 06:35 Total Bilirubin 0.5 mg/dL (0.2-1.3) 04/19/17 06:35 AST 37 U/L (15-59) 04/19/17 06:35 ALT 31 U/L (7-56) 04/19/17 06:35 Alkaline Phosphatase 55 U/L (38-133) 04/19/17 06:35 Troponin I < 0.01 ng/mL 04/17/17 18:11 C-React Prot High Sens > 15.00 mg/L (1.00-3.00) H 04/17/17 10:50 NT-Pro-B Natriuret Pep 90.6 pg/mL (0-450) 04/17/17 07:30 Total Protein 7.3 g/dL (5.8-8.3) 04/19/17 06:35 Albumin 3.9 g/dL (3.0-4.8) 04/19/17 06:35 Globulin 3.4 gm/dL 04/19/17 06:35 Albumin/Globulin Ratio 1.1 (1.1-1.8) 04/19/17 06:35 Procalcitonin 0.06 NG/ML (0.19-0.49) L 04/17/17 10:50 Free T4 0.93 ng/dL (0.78-2.19) 04/17/17 07:30 TSH 3rd Generation 2.01 mIU/mL (0.46-4.68) 04/17/17 07:30 Stool Leukocytes, Qual Negative (NEGATIVE) 04/17/17 16:41 HIV 1&2 Ag/Ab, 4th Gen Nonreactive (Nonreactive) 04/19/17 06:35 - Hospital Course Hospital Course: Mr. Orozco is a 26 year old male with a past medical history of bacterial endocarditis with mitral valve repair in 2012 presented with the complaint of shortness of breath and extreme fatigue. He was found to have a fever of 103 in the ED and after coreas cultures were drawn he was administered one dose of amoxicillin and started on fluids. An EKG showed RBBB with T wave abnormalities , serial troponins were drawn and found to be negative. ID and Cardiology were consulted. Patient was started on IV Vancomycin and Zosyn. Patient later admitted to having diarrhea previously. A CT abd/pelv showed pancolitis and patient was changed to IV flagyl and ciprofloxacin. An echo was done given his history of endocarditis and was found to be free of septic vegetations. After patients abdominal pain was under control and he was afebrile for 48 hours, he was sent home on PO cipro and augementin and was recommended follow up within one week at a PMD's office. - Date & Time of H&P Date of H&P: 04/17/17 Time of H&P: 06:25 Discharge Exam - Head Exam Head Exam: NORMAL INSPECTION - Eye Exam Eye Exam: EOMI, Normal appearance - ENT Exam ENT Exam: Mucous Membranes Moist, Normal Exam - Neck Exam Neck exam: Full Rom, Normal Inspection - Respiratory Exam Respiratory Exam: NORMAL BREATHING PATTERN, UNREMARKABLE. absent: Rales, Rhonchi, Wheezes, Respiratory Distress, Stridor - Cardiovascular Exam Cardiovascular Exam: REGULAR RHYTHM, RRR, +S1, +S2 - GI/Abdominal Exam GI & Abdominal Exam: Normal Bowel Sounds, Unremarkable. absent: Distended, Tenderness - Extremities Exam Extremities exam: normal capillary refill, pedal pulses present Additional comments: No calf tenderness or pedal edema bilaterally - Neurological Exam Neurological exam: Alert, Normal Gait, Oriented x3 - Psychiatric Exam Psychiatric exam: Normal Affect, Normal Mood - Skin Skin Exam: Dry, Intact, Normal Color, Warm Discharge Plan - Discharge Medications Prescriptions: Amoxicillin/Clavulanate [Augmentin 875 MG-125 MG Tab] 1 tab PO Q12 #14 tab - Follow Up Plan Condition: GOOD Disposition: HOME/ ROUTINE Instructions: Fever in Adults (GEN), Ulcerative Colitis (DC), Acute Diarrhea ( GEN), Acute Abdominal Pain (DC), Infectious Colitis (GEN) Additional Instructions: Take medications as directed. You MUST follow up with primary care provider within 1 week. Return to Local ER if diarrhea or abdominal pain worsens. Referrals: Robby Ervin MD [Staff Provider] - Clyde Mcgregor MD [Staff Provider] - Florin Luna MD [Staff Provider] -
== END 2017-04-19 14:00 | disposition home or self-care (01) | DRG 392 ==
LOC: ED 00:10 → ERH 01:12 → 5RNO 03:40 → OBSVTOIN 04-18 15:18 → 5RNO 04-18 15:57
PROVIDERS: ADMIT Internal Medicine; ATTEND Internal Medicine
DX: K52.9 Noninfective gastroenteritis and colitis, unspecified (principal); I38 Endocarditis, valve unspecified; I27.2 Other secondary pulmonary hypertension; R50.9 Fever, unspecified; I45.10 Unspecified right bundle-branch block; R53.83 Other fatigue; E66.9 Obesity, unspecified; Z68.34 Body mass index [BMI] 34.0-34.9, adult; Z98.890 Other specified postprocedural states